=== PATIENT | female | born 1980 | race Caucasian/White ===

== ENCOUNTER 2023-09-18 19:16 | Emergency (ER) | payer OTHER ==
[~2023-09-18] VITALS: Ht 154.9 cm; Wt 94.3 kg
[2023-09-18 20:16] VITALS: BP 133/62
== END 2023-09-18 23:15 | disposition home or self-care (01) ==
LOC: ER 19:16
DX: M25.561 Pain in right knee (principal); Z88.8 Allergy status to other drugs, medicaments and biological substances
CPT/HCPCS: 93971; 99283-25

== ENCOUNTER → 2024-06-05 | Outpatient (CLI) | payer BC ==
[2024-06-05 19:05] LABS: BASOPHILS ABSOLUTE AUTO 0.03 K/mm3 (0.00-0.23); BASOPHILS PERCENT AUTO 1 % (0-2); EOSINOPHILS ABSOLUTE AUTO 0.01 K/mm3 (0.00-0.68); EOSINOPHILS PERCENT AUTO 0 % (0-6); Hematocrit 39.1 % (33.0-51.0); Hemoglobin 12.3 g/dL (11.5-16.0); IMMATURE GRAN ABSOLUTE AUTO 0.01 K/mm3 (0.00-0.10); IMMATURE GRAN PERCENT AUTO 0 % (0-1); LYMPHOCYTES ABSOLUTE AUTO 1.09 K/mm3 (0.84-5.20); LYMPHOCYTES PERCENT AUTO 27 % (21-46); MONOCYTES ABSOLUTE AUTO 0.39 K/mm3 (0.16-1.47); MONOCYTES PERCENT AUTO 10 % (4-13); Mean Corpuscular HGB 27.5 pg (26.0-34.0); Mean Corpuscular HGB Conc 31.5 g/dL (31.5-36.5); Mean Corpuscular Volume 88 fL (80-100); Mean Platelet Volume 10.8 fL (9.1-12.4); NEUTROPHILS ABSOLUTE AUTO 2.54 K/mm3 (1.96-9.15); NEUTROPHILS PERCENT AUTO 63 % (41-73); Platelet Count 343 K/mm3 (150-400); RDW Coefficient Variation 15.1 % (11.7-14.2); RDW Standard Deviation 48.6 fL (35.1-46.3); Red Blood Cell Count 4.47 M/mm3 (3.80-5.20); White Blood Cell Count 4.07 K/mm3 (4.00-11.30)
[2024-06-05 20:08] LABS: Percent Saturation 11.7 % (15.0-50.0)
== END ==
LOC: LAB 13:55 → LAB SHORT 13:55
PROVIDERS: Internal Medicine Hematology & Oncology
DX: E61.1 Iron deficiency (principal)
CPT/HCPCS: 82728; 83540; 83550; 85025

== ENCOUNTER 2024-06-18 08:06 | Day surgery (SDC) | payer BC ==
[~2024-06-18] VITALS: Ht 154.9 cm; Wt 93.0 kg
[~2024-06-18 08:06] MED LIST: NS 500 ML IV SCH
[2024-06-18 09:11] VITALS: BP 110/76
[2024-06-18] MEDS ORDERED: Benzocaine Oral Spray 0.5ML UD ONE (09:13)
--- NOTE | 2024-06-18 09:15 | NUR ---
Ambulatory in Day Surgery WITH STEADY GAIT. History, Chart, Medications and Allergies reviewed before start of procedure. Patient confirms NPO status and agrees with scheduled surgery. Patient States Post-Procedure ride home has been arranged WITH [employer]. GLASSES REMOVED AND PLACED IN PRE OP BAY ON TOP OF DRAWERS.
--- NOTE | 2024-06-18 09:17 | NUR ---
06/18/24 0917 Amparo Arnett PRIOR TO START OF PROCEDURE: MONITOR INTACT WITH CONTINUOUS PULSE OXIMETRY, CONTINUOUS END TITAL CO2, AND INTERMITTENT BLOOD PRESSURE.
[2024-06-18] MEDS ORDERED: ePHEDrine Sulfate 50 MG/ML 1ML Injection ONE (09:37)
[2024-06-18] MEDS ORDERED: Ketorolac Tromethamine 30mg Vial ONE (09:43)
[2024-06-18] MEDS ORDERED: Midazolam HCl 1MG / ML 2ML Vial ONE (09:43)
[2024-06-18 09:47] VITALS: BP 118/58
--- NOTE | 2024-06-18 09:47 | NUR ---
PT TO DAY SURGERY STEP DOWN FROM EGD AND COLONOSCOPY; BEDSIDE REPORT RECEIVED. PT IS SLEEPY, BUT RESPONDS TO VOICE, AND FALLS BACK TO SLEEP.
[2024-06-18 09:59] VITALS: BP 119/68
--- NOTE | 2024-06-18 09:59 | NUR ---
PT WIDE AWAKE, IS ALERT AND ORIENTED. TOLERATING PO FLUIDS WELL.
--- NOTE | 2024-06-18 10:03 | NUR ---
Discharge instructions reviewed with patient. Patient verbalizes understanding. Copy given to patient to take home. Patient States Post-Procedure ride home has been arranged.
--- NOTE | 2024-06-18 10:11 | NUR ---
Patient up to Ambulate independently. Gait steady. Discharged via wheelchair to private car for ride home.
== END 2024-06-18 10:12 | disposition home or self-care (01) ==
LOC: ORSCMMR 08:06 → ORD 09:30 → ORSCMMR 10:12
PROVIDERS: Internal Medicine Gastroenterology
PROC: 0DBM8ZX Excision of Descending Colon, Via Natural or Artificial Opening Endoscopic, Diagnostic (ICD-10-PCS; principal; 2024-06-18 09:30)
PROC: 0DB88ZX Excision of Small Intestine, Via Natural or Artificial Opening Endoscopic, Diagnostic (ICD-10-PCS; principal; 2024-06-18 09:30)
PROC: 0DBL8ZX Excision of Transverse Colon, Via Natural or Artificial Opening Endoscopic, Diagnostic (ICD-10-PCS; principal; 2024-06-18 09:30)
PROC: 0DB48ZX Excision of Esophagogastric Junction, Via Natural or Artificial Opening Endoscopic, Diagnostic (ICD-10-PCS; principal; 2024-06-18 09:30)
PROC: 0DB78ZX Excision of Stomach, Pylorus, Via Natural or Artificial Opening Endoscopic, Diagnostic (ICD-10-PCS; principal; 2024-06-18 09:30)
DX: D50.0 Iron deficiency anemia secondary to blood loss (chronic) (principal); C18.6 Malignant neoplasm of descending colon; C18.4 Malignant neoplasm of transverse colon; G47.33 Obstructive sleep apnea (adult) (pediatric); Z68.38 Body mass index [BMI] 38.0-38.9, adult; Z98.84 Bariatric surgery status
CPT/HCPCS: 88305; 88342; A9270; J1885; J2250; J7040

== ENCOUNTER 2024-06-19 12:12 | Day surgery (SDC) | payer BC ==
[~2024-06-19] VITALS: Ht 154.9 cm; Wt 93.7 kg
[2024-06-19] MEDS ORDERED: NS 500 ML IV SCH (14:50)
[2024-06-19 16:26] VITALS: BP 112/79
--- NOTE | 2024-06-19 16:31 | NUR ---
Ambulatory in Day Surgery for repeat colonoscopy s/p malignant pathology results from 06/18/24 colonoscopy w/Dr. Saenz. History, Chart, Medications and Allergies reviewed before start of procedure. Lungs clear T/O to Auscultation. Patient confirms NPO status and agrees with scheduled surgery. Pre-Op teaching done. Pt verbalizes understanding. Patient States Post-Procedure ride home has been arranged.
[2024-06-19] MEDS ORDERED: Lidocaine HCl 2% 10 ML SDA ONE (17:02)
[2024-06-19] MEDS ORDERED: propofoL 40 ML IV ONE (17:02)
--- NOTE | 2024-06-19 17:28 | NUR ---
06/19/24 [address] MELENDREZ; SEE ANESTHESIA RECORDS.
[2024-06-19 17:35] VITALS: BP 105/65
[2024-06-19 17:45] VITALS: BP 121/82
--- NOTE | 2024-06-19 18:05 | NUR ---
Discharge instructions reviewed with patient. Patient verbalizes understanding. Copy given to patient to take home. Discharged via wheelchair to private car for ride home.
[2024-07-02] MEDS ORDERED: Multivitamins1 EACH PO (11:08)
== END 2024-06-19 23:13 | disposition home or self-care (01) ==
LOC: ORSCMMR 12:12
PROVIDERS: Internal Medicine Gastroenterology
PROC: 3E0H8GC Introduction of Other Therapeutic Substance into Lower GI, Via Natural or Artificial Opening Endoscopic (ICD-10-PCS; principal; 2024-06-19 17:00)
DX: C18.6 Malignant neoplasm of descending colon (principal); G47.33 Obstructive sleep apnea (adult) (pediatric); E66.9 Obesity, unspecified; Z68.39 Body mass index [BMI] 39.0-39.9, adult
CPT/HCPCS: J2003; J2704; J7040

== ENCOUNTER 2024-07-03 05:45 | Inpatient (IN) | payer BC ==
[2024-07-03] VITALS (24 sets, daily range): BP systolic 109–132; BP diastolic 57–86
[~2024-07-03] VITALS: Ht 154.9 cm; Wt 97.1 kg
[~2024-07-03 05:45] MED LIST changes: +Multivitamins1 EACH PO; -NS 500 ML IV SCH
[2024-07-03] MEDS ORDERED: Lactated Ringer's 1,000 ML IV SCH (06:15)
[2024-07-03] MEDS ORDERED: propofoL 20 ML IV ONE (06:41)
[2024-07-03] MEDS ORDERED: FentaNYL Citrate 50 MCG/ML 2 ML Injection ONE (06:41)
[2024-07-03] MEDS ORDERED: Bupivacaine 0.5% HCl 5 MG/ML 30MLVIAL ONE (07:11)
[2024-07-03] MEDS ORDERED: CeFAZolin Sodium 2,000 MG in NS 100 ML IV SCH (07:15)
[2024-07-03] MEDS ORDERED: MetroNIDAZOLE 500MG/NS 100 ml 100 ML IV SCH (07:15)
[2024-07-03] MEDS ORDERED: Heparin Sodium,Porcine 5,000 UNIT/0.5 ML SDV SC ONE (07:15)
[2024-07-03] MEDS ORDERED: CeFAZolin Sodium 2,000 MG VIAL ONE (07:19)
--- NOTE | 2024-07-03 07:33 | NUR ---
0615 AMBULATE TO [facility]. CONFIRMED SURGERY AND SURGEON. LUNGS CLEAR, GLASSES AND WEDDING RING GIVEN TO , AT BEDSIDE. PT STATES DID NOT DO PRE OP SHOWER LAST NIGHT OR THIS MORNING. DR ALVAREZ AWARE. PRE OP TEACHING DONE.PT VERBALIZED UNDERSTANDING
[2024-07-03] MEDS ORDERED: Phenylephrine HCl 10mg/ml 1 ml Vial ONE (07:40)
[2024-07-03] MEDS ORDERED: ePHEDrine Sulfate 50 MG/ML 1ML Injection ONE (07:41)
[2024-07-03] MEDS ORDERED: Dexamethasone Sod Phos 10 MG/ML 1ML VIAL ONE (07:49)
[2024-07-03] MEDS ORDERED: Rocuronium Bromide 10 MG/ML 5ML Injection IV ONE ×3 (08:06→08:07)
[2024-07-03] MEDS ORDERED: Indocyanine Green 25 MG Vial IV ONE (08:10)
[2024-07-03] MEDS ORDERED: HYDROmorphone HCl/Pf 1MG SYR ONE ×2 (10:30→11:59)
[2024-07-03] MEDS ORDERED: CeFAZolin Sodium 1000 mg Vial ONE ×2 (11:53)
[2024-07-03] MEDS ORDERED: Sugammadex Sodium 200 MG/2ML SDV (100 MG/ML) ONE (12:28)
[2024-07-03] MEDS ORDERED: Ondansetron HCl 2 MG / ML 2ML Vial ONE ×2 (12:28→13:37)
[2024-07-03] MEDS ORDERED: OxyCODONE HCL 5 MG TAB PO PRN (13:25)
[2024-07-03] MEDS ORDERED: Ondansetron HCl 2 MG / ML 2ML Vial IV PRN (13:25)
[2024-07-03] MEDS ORDERED: FLU VACC TS2024-25(6MOS UP)/PF 45 MCG/0.5 ML SYRINGE IM SCH (13:25)
[2024-07-03] MEDS ORDERED: HYDROmorphone HCl/Pf 1MG SYR IV PRN (13:25)
[2024-07-03] MEDS ORDERED: Acetaminophen 325 MG TABLET PO PRN (13:25)
[2024-07-03] MEDS ORDERED: Droperidol 5 mg/2 ml Vial ONE (13:46)
--- NOTE | 2024-07-03 18:00 | NUR ---
SHIFT SUMMARY PT POD0 FOR L MARIA TERESA-CHOLECTOMY. PT HAS VOIDED AND BEEN IN CHAIR FOR OVER AN HOUR. PT CLAU PO INTAKE WELL. NO COMPLAINTS BESIDES SOME INDIGESTION AND OCCASIONAL NAUSEA. INCISIONS ON ABD C/D/I. ABD BINDER IN PLACE. FAMILY KEPT UPDATED.
[2024-07-03] MEDS ORDERED: Metoclopramide HCl 5MG / ML 2ML Vial IV PRN (18:20)
[2024-07-03] MEDS ORDERED: Scopolamine Hydrobromide Patch TOP SCH (18:20)
[2024-07-03] MEDS ORDERED: Calcium Carbonate 500 MG Tab Chew PO ONE (18:20)
--- NOTE | 2024-07-03 18:20 | NUR ---
PT HAVING UNCONTROLLED N/V. DR ALVAREZ NOTIFIED AND ORDERS RECEIVED.
[2024-07-03] MEDS ORDERED: LORazepam 2 MG/ML 1ML Injection IV PRN (21:35)
--- NOTE | 2024-07-04 04:53 | NUR ---
SHIFT SUMMARY NOC. PT POD 1 FOR L HEMICOLECTOMY. PT A/O X4, VOIDING URINE, PT DRINKING MINIMAL AMOUNTS. PT HAD SIGNIFICANT NAUSEA AND DRY HEAVES AT START OF SHIFT. PT MEDICATED WITH ZOFRAN WITH REPORTED RELIEF. PT MEDICATED FOR PAIN X2 WITH ORALS WITHOUT VOMITING PILLS. PT'S LAP SITES X5 C/D/I WITH ABD BINDER IN PLACE. BED IN LOWEST POSITION, CALL LIGHT IN REACH.
[2024-07-04 05:21] VITALS: BP 106/57
[2024-07-04 05:37] LABS: Hematocrit 34.5 % (33.0-51.0); Hemoglobin 11.2 g/dL (11.5-16.0)
[2024-07-04 07:03] LABS: Magnesium, Blood 2.1 mg/dL (1.6-2.4); Potassium, Blood 3.9 mmol/L (3.5-5.5)
[2024-07-04 07:24] VITALS: BP 106/54
[2024-07-04] MEDS ORDERED: Enoxaparin 40 MG/0.4 ML SYR SC SCH (09:00)
[2024-07-04] MEDS ORDERED: Magnesium Oxide 400 MG Tab PO SCH (09:00)
--- NOTE | 2024-07-04 11:48 | NUR ---
L AND R HAND IV'S D/C'D INTACT BOTH INFILTRATED WHEN FLUSHED. SITES CLEAR. INSTRUCTIONS GIVEN. PT TOLERATED WELL.
--- NOTE | 2024-07-04 12:20 | NUR ---
REPORT FROM NAVI BERNAL. ASSUMING CARE AT THIS TIME. PT IS ASLEEP IN BED. CALL LIGHT IN REACH.
[2024-07-04] MEDS ORDERED: Ondansetron 4 MG SoluTab MM PRN (14:30)
[2024-07-04 14:46] VITALS: BP 98/59
--- NOTE | 2024-07-04 16:51 | NUR ---
SHIFT SUMMARY PT HAD NO MAJOR EVENTS TODAY. IVS WERE REMOVED EARLIER TODAY PRIOR TO MY CARE DUE TO NOT BEING PATENT. PROVIDER OK WITH NO IV ACCESS. PT HAS BEEN UP AND ABOUT IN ROOM AND IN A GOOD MOOD. NO COMPLAINTS OF NAUSEA OR VOMITING AND NO PAIN REPORTED. ABD BINDER IN PLACE. PLAN TO POSSIBLY DISCHARGE TOMORROW. CLAU PO INTAKE WELL. CALL LIGHT IN REACH.
--- NOTE | 2024-07-04 17:02 | NUR ---
PT ARRIVES BACK FROM IR, ALERT, AND IN NO PAIN. PT HAS BILA POPLITEAL FLOWSTASIS IN PLACE. CMS INTACT BILAT. NO OOZING OR DRAINAGE NOTED. PT DOES HAVE SOME DRIED ON BOTH LEGS FROM PROCEDURE.
[2024-07-04 19:24] VITALS: BP 108/58
[2024-07-05 04:06] VITALS: BP 98/64
--- NOTE | 2024-07-05 05:14 | NUR ---
SHIFT SUMMARY NOC. PT POD 2 FOR LEFT HEMICOLECTOMY. PT A/O X4, AND CALLS APPROPRIATLY. PT INDEPENDENT IN THE ROOM AND AMBULATING WELL. PT HAS NO IV ACCESS AT THIS TIME AND ORDERS IN PLACE FOR THIS. PT DENIES N/V THIS SHIFT. PT MEDICATED WITH ORAL PAIN MEDS WITH REPORTED RELIEF. PT'S LAP SITES X5 C/D/I ASIDE FROM SOME NOTED IRRITATION ON BOTTOM 3 INCISIONS FROM RUBBING AGAINST ABDOMINAL BINDER. CLEAN PILLOW CASE ADDED FOR EXTRA BARRIER TO PREVENT RUBBING. PT NOTED IMPROVEMENT IN DISCOMFORT. PT VOIDING AND TOLERATING PO INTAKE. BED IN LOWEST POSITION, CALL LIGHT IN REACH.
[2024-07-05 07:25] VITALS: BP 124/89
[2024-07-05] MEDS ORDERED: Acetaminophen650 M1 PO (07:43)
[2024-07-05] MEDS ORDERED: OXAYDO5 M2 PO (07:43)
--- NOTE | 2024-07-05 10:35 | NUR ---
DISCHARGE: PACKET PRINTED AND PT EDUCATED. SCRIPT SENT TO [facility]. PT DENIED NEED FOR WHEELCHAIR AND LEFT UNIT AT ABOUT 1030 WITH ON FOOT
== END 2024-07-05 10:33 | disposition home or self-care (01) | DRG 331 ==
LOC: MEDS 05:45 → PRE IP 07:30 → SURS 14:23
PROVIDERS: ADMIT Surgery
PROC: 8E0W4CZ Robotic Assisted Procedure of Trunk Region, Percutaneous Endoscopic Approach (ICD-10-PCS; 2024-07-03)
PROC: 0DTF4ZZ Resection of Right Large Intestine, Percutaneous Endoscopic Approach (ICD-10-PCS; principal; 2024-07-03 07:30)
DX: C18.4 Malignant neoplasm of transverse colon (principal); D50.9 Iron deficiency anemia, unspecified; Z98.84 Bariatric surgery status; Z98.890 Other specified postprocedural states; Z88.8 Allergy status to other drugs, medicaments and biological substances
CPT/HCPCS: 36415; 82947; 83735; 84132; 85014; 85018; 88309; A9270; J0690; J1100; J1171; J1644; J1790; J2371; J2405; J2704; J2765; J3010; J7120

== ENCOUNTER 2025-06-22 22:19 | Emergency (ER) | payer OTHER ==
[~2025-06-22] VITALS: Ht 154.9 cm; Wt 97.1 kg
[~2025-06-22 22:19] MED LIST changes: +Acetaminophen650 M1 PO; +OXAYDO5 M2 PO
[2025-06-22 22:31] VITALS: BP 133/80
[2025-06-22] MEDS ORDERED: CEPH500 PO (22:35)
== END 2025-06-22 22:41 | disposition home or self-care (01) ==
LOC: ER 22:19
DX: L03.032 Cellulitis of left toe (principal); Z88.8 Allergy status to other drugs, medicaments and biological substances
CPT/HCPCS: 99283; A9270

== ENCOUNTER 2025-06-28 23:27 | Emergency (ER) | payer OTHER ==
[~2025-06-28] VITALS: Ht 154.9 cm; Wt 98.0 kg
[~2025-06-28 23:27] MED LIST changes: +CEPH500 PO
[2025-06-29] MEDS ORDERED: Cleocin HCl150 MG PO (01:14)
[2025-06-29 01:40] VITALS: BP 126/84
== END 2025-06-29 02:02 | disposition home or self-care (01) ==
LOC: ER 23:27
DX: L03.032 Cellulitis of left toe (principal); L03.031 Cellulitis of right toe
CPT/HCPCS: 73660; 99283

== ENCOUNTER → 2025-08-26 | Outpatient (CLI) | payer OTHER ==
[~2025-08-26] MED LIST changes: +Cleocin HCl150 MG PO
[2025-08-26 18:17] LABS: Ferritin, Serum 42.0 ng/mL (8-252); Total Iron Binding Capacity 403.0 ug/dL (250-450)
== END | disposition home or self-care (01) ==
LOC: LAB SHORT 10:00 → LAB 10:00
PROVIDERS: Internal Medicine Hematology & Oncology
DX: E61.1 Iron deficiency (principal)
CPT/HCPCS: 82728; 83540; 83550